=== PATIENT | female | born 1990 | race Asian ===

== ENCOUNTER 2022-04-06 07:46 | Inpatient (IN) ==
[2022-04-06] MEDS ORDERED: OXYTOCIN 30 UNITS/500 ML BAG IV PRN ×3 (09:17→19:10)
[2022-04-06] MEDS ORDERED: LIDOCAINE 1% LOCAL 20 ML VIAL INFIL PRN (09:17)
--- NOTE | 2022-04-06 09:17 | History & Physical Report ---
Date of Service April 06, 2022 Assessment & Plan (1) Encounter for induction of labor: Plan - Patient admitted to labor and delivery for initiation of medical induction of labor - Did not receive Francois bulb placement as she was 4/80/-1 at visit 04/05 w/ Dr Bishop - Patient is at 5/90/-1 today w/o evidence of contractions, thus oxytocin augmentation of labor will be started per protocol - Once contractions are progressing, will consider ROM - Will anticipate epidural as contractions arise - Labs pending Admission and Anticipated Discharge Date Admission Date: April 06, 2022 History of Present Illness Chief Complaint: Induction of Labor Primary Care Provider: NO PCP Khanh is a 31 year old female currently at 40 4/7 with YOKO of 04/02 determined by LMP 06/26/21 who is presenting to L&D for induction of labor. Complications: None Reason for Induction/: Post-date Movement: Yes Fluid Loss/ROM: No Bloody show/discharge: Light spotting since cervix check in office External FHT and uterine monitor: Category 1, tracing reactive, good FHT variability (acels w/o dcels), no contractions Last OB appointment: 04/05 w/ [facility], regular care [facility] Hx: No hx of abnormal pap, No hx of STI Labs: Blood Type: O+ Antibody Screen: Negative Hg/Hct (today): Pending WBC/Plt (today): Pending Rubella: Immune RPR: Non-reactive Gonorrhea: Negative Chlamydia: Negative HIV: Negative HbSAg: Negative GBS: Negative Cff-DNA: Low risk Cf-SMA: Low risk ROS: - Denies fever/chills, CP/dyspnea, dysuria, headache or vision changes Allergies Allergy/AdvReac Type Severity Reaction Status Date / Time No Known Allergies Allergy Verified 04/05/22 10:06 Home Medications Medication Instructions Recorded Confirmed Type ascorbate calcium (vitamin C) 1 tab PO DAILY 08/26/21 04/06/22 History prenat.vits,li,kpk-kcug-ttkus 1 tab PO DAILY 08/26/21 04/06/22 History vitamin B complex 1 tab PO DAILY 08/26/21 04/06/22 History breast pump #1 ea 02/21/22 04/05/22 Rx lecithin 1 tab PO DAILY 02/23/23 02/23/23 History Patient History Medical History (Updated 04/06/22 @ 13:39 by Colin Arriaga MD) Term Surgical History (Updated 04/06/22 @ 13:39 by Colin Arriaga MD) No significant past surgical history Family History Mother Thalassemia Social History (Updated 08/26/21 @ 09:59 by Natalie Khan) Smoking Status: Never smoker Hx Alcohol Use: No Hx Substance Use: No Preferred Language: Comoran Communication Ability: Effective Chief Unit Forester Required: No Beliefs That Will Affect Care: Episcopal Episcopal Beliefs: Patient states she is a yazdanism. marital status: marital status details: Ellis (36) [phone] Current Living Situation: Spouse Current Living Situation Comment: lives with spouse no pets. current occupational status: student current occupation: Student at [employer], Other Information That Helps Us Care for You: No Feels Safe at Home: Yes Safety Concerns: Feels Safe At This Time Physical Exam Physical Exam: General: Alert, oriented. No acute distress. Cardiac: Regular rate and rhythm, no murmurs/rubs/gallops. Respiratory: Clear to auscultation bilaterally a/p, no wheezes/rales/rhonchi. No increased work of breathing. Symmetrical chest rise. No respiratory distress. Abdomen: Gravid; reactive FHTs; Position: Vertex Pelvic: 5/90/-[address] Bishop Lower Extremities: No lower extremity edema or swelling. No deep calf pain. Mariely's negative bilaterally. Results & Data ([facility]) Vital Signs (Past 12 Hours) Vital Signs Temp Pulse Resp BP 04/06/22 08:23 36.5 C 72 18 102/66 Supervising Physician Co-Signing Physician Notes Resident Physician Supervision Note: I was present with Dr. Luna during the history and exam. I discussed the case with the resident and agree with the findings and plan as documented in the note. Any exceptions or clarifications are listed here: None Documented By: Priscilla Bishop, Resident Activity Tracking Resident Involvement: Resident Care Provided Care Provided: OB Delivery
[2022-04-06] MEDS: LACTATED RINGER'S 1,000 ML IV PRN ×2 (09:40→13:45)
[2022-04-06 09:49] LABS: Hematocrit (blood only) 37.3 % (37.0-47.0); Hemoglobin 13.1 g/dl (12.0-16.0); Mean Corpuscular Hemoglobin 35.9 pg (25.0-34.0); Mean Corpuscular Hgb Conc 35.1 g/dL (32.0-36.0); Mean Corpuscular Volume 102.2 fL (80.0-100.0); Mean Platelet Volume 10.1 fL (9.4-12.4); Platelet Count 174 K/uL (130-400); RDW Coefficient of Variation 12.1 % (11.5-14.5); RDW Standard Deviation 45.2 fL (36.4-46.3); Red Blood Count 3.65 M/uL (4.20-5.40)
[2022-04-06] MEDS ORDERED: BUPIVACAINE 0.25% 30 ML VIAL ONE (13:31)
[2022-04-06] MEDS ORDERED: SODIUM CHLORIDE 0.9% INJ 10 ML VIAL ONE (13:31)
[2022-04-06] MEDS ORDERED: fentaNYL citrate 100 MCG/2 ML VIAL ONE (13:31)
[2022-04-06] MEDS ORDERED: LIDOCAINE 2%/EPINEPHRINE 1:200,000 20 ML SDV ONE (13:31)
[2022-04-06] MEDS ORDERED: ePHEDrine sulfate 50 MG/ML AMP ONE (13:31)
[2022-04-06] MEDS ORDERED: fentaNYL 2MCG/ML ROPIVACAINE 1.25MG/ML 100 ML BAG EPI ONE (13:32)
--- NOTE | 2022-04-06 13:39 | Anesthesiology Consultation ---
Date of Service April 06, 2022 Assessment & Plan (1) Encounter for pre-operative examination: Chart Review Chart Review: Acceptable Risk for Labor Epidural History Height/Weight Height: 5 ft 3.78 in Weight: 60.781 kg Allergies Allergy/AdvReac Type Severity Reaction Status Date / Time No Known Allergies Allergy Verified 04/05/22 10:06 Medications Home Medications Medication Instructions Recorded Confirmed Last Taken ascorbate calcium (vitamin C) 1 tab PO DAILY 08/26/21 04/06/22 04/05/22 08:00 prenat.vits,li,wjz-godt-whors 1 tab PO DAILY 08/26/21 04/06/22 04/05/22 08:00 vitamin B complex 1 tab PO DAILY 08/26/21 04/06/22 04/05/22 08:00 breast pump #1 ea 02/21/22 04/05/22 Unknown lecithin 1 tab PO DAILY 04/06/22 04/06/22 04/05/22 08:00 Active Medications Generic Name Dose Route Start Last Admin Trade Name Bettina PRN Reason Stop Dose Admin Lactated Ringer's 1,000 mls @ 125 mls/hr 04/06/22 09:17 04/06/22 10:00 Lr IV 04/08/22 09:16 125 mls/hr .Q8H PRN Infusion L&D Protocol Protocol Oxytocin 30 units in 500 mls @ 13 mls/hr 04/06/22 09:17 04/06/22 13:00 Pitocin IV 04/08/22 09:16 0.78 units/hr .Q24H PRN 13 mls/hr Labor Induction/Augmentation Titration Protocol 0.78 UNITS/HR Past Medical History Medical History (Updated 04/06/22 @ 13:39 by Colin Arriaga MD) Term Past Family History Family History Mother Thalassemia Past Surgical History Surgical History (Updated 04/06/22 @ 13:39 by Colin Arriaga MD) No significant past surgical history Social History Smoking Status: Never smoker Hx Alcohol Use: No Hx Substance Use: No substance use type: does not use Physical Exam Vital Signs Last Vital Signs Temp 36.7 C 04/06/22 11:28 Pulse 67 04/06/22 13:28 Resp 18 02/23/23 11:28 BP 122/67 04/06/22 13:28 Testing Laboratory Results 04/06/22 09:27
[2022-04-06] MEDS ORDERED: NALOXONE HCL 1 MG in SODIUM CHLORIDE 0.9% 1000ML 1,000 ML IV PRN (14:03)
[2022-04-06] MEDS ORDERED: fentaNYL 2MCG/ML ROPIVACAINE 1.25MG/ML 100 ML BAG EPI PRN (14:03)
[2022-04-06] MEDS ORDERED: NALOXONE HCL 0.4 MG/1 ML VIAL/CARP IV PRN (14:03)
[2022-04-06] MEDS ORDERED: ONDANSETRON INJ 2 MG/ML 2 ML VIAL IV PRN (14:03)
[2022-04-06] MEDS ORDERED: ePHEDrine sulfate 50 MG/ML AMP IV PRN (14:03)
[2022-04-06] MEDS ORDERED: NURSING L&D Epidural Breakthrough Pain Update ONE (15:10)
[2022-04-06] MEDS ORDERED: oxyCODONE/ACETAMINOPHEN 5mg/325mg TAB PO PRN (19:10)
[2022-04-06] MEDS ORDERED: BENZOCAINE 20% AER SPR 82.5 GM CAN EXT PRN (19:10)
[2022-04-06] MEDS ORDERED: HYDROCORTISONE ACETATE 25 MG SUPP PR PRN (19:10)
[2022-04-06] MEDS ORDERED: DIPHTHERIA/TETANUS/PERTUSSIS 0.5mL SYR/VIAL (Age 7+yrs) IM ONE (19:10)
[2022-04-06] MEDS ORDERED: bisacodyL 10 MG SUPP PR PRN (19:10)
[2022-04-06] MEDS ORDERED: ACETAMINOPHEN 325 MG TAB PO PRN (19:10)
--- NOTE | 2022-04-06 19:16 | Delivery Summary ---
Vaginal Delivery Summary Date of Service April 06, 2022 Vaginal Delivery Summary Vaginal Delivery Summary: Pre-delivery diagnoses: 31yo @ 40 4/7, IOL Post-delivery diagnoses: same Procedure: spontaneous vaginal delivery, repair of 3rd degree perineal laceration and left vaginal sulcal tear Surgeon: Priscilla Bishop DO Complications: none Findings: Viable female . Apgars and weight pending, please see nursery records Estimated blood loss: 400ml Description of delivery: The patient progressed to complete with epidural anesthesia. She then began to push. She spontaneously vaginally delivered a viable from the cephalic presentation. The head delivered in [place] position. The anterior shoulder delivered, followed by the posterior shoulder, followed by the body. The baby was placed on mother's abdomen and a spontaneous cry was heard. Delayed cord clamping was employed, and the cord was doubly clamped and cut. Cord blood was obtained. The placenta was delivered spontaneously intact with a 3-vessel cord. The uterus and vagina were swept of clots and debris. IV pitocin was given. The uterus became firm. The cervix, vagina, and perineum were inspected and a 3rd degree perineal laceration was noted, as well as a deep left sulcal tear. The left sulcal tear was reapproximated with 3-0 vicryl. The anal sphincter muscle was partially lacerated, reapproximated with 3-0 Chromic. The remaining tear was reapproximated with 3-0 Vicryl. Excellent hemostasis was observed. The mother and baby are recovering in stable and good condition in the room. Sponge, needle and instrument counts were correct x 2. Priscilla Bishop DO [facility]
--- NOTE | 2022-04-06 19:18 | Anesthesia Procedure Note ---
Date of Service April 06, 2022 Anesthesia Post Epidural Note Vital Signs Vital Signs: Temp Pulse Resp BP Pulse Ox 36.4 C L 101 H 18 102/58 L 98 04/06/22 15:30 04/06/22 19:15 04/06/22 19:00 04/06/22 19:15 04/06/22 18:18 Pain Intensity Lower Abdomen: Pain Intensity: 8 Notes Mental Status: alert / awake / arousable and participated in evaluation Nausea / Vomiting: adequately controlled Pain: adequately controlled Airway Patency, RR, SpO2: stable & adequate BP & HR: stable & adequate Hydration State: stable & adequate Neuraxial Anesthesia: was administered and sensory block is resolving Anesthetic Complications: no major complications apparent Epidural: Removed without complications and With tip intact
[2022-04-06] MEDS: DOCUSATE SODIUM 100 MG CAP PO SCH (21:25)
--- NOTE | 2022-04-06 21:27 | Obstetrical Progress Note ---
Date of Service April 06, 2022 Assessment & Plan Admission and Anticipated Discharge Date Admission Date: April 06, 2022 Subjective Called to patient's room by RN, patient had passed out in bed for about 2-3 minutes, witnessed by her mother and FOB. She was given O2 and IV fluids. I ordered STAT H/H. I examined her at bedside. Uterine fundus firm, small amount of lochia. Patient was awake, talking. Told me she was feeling fine and thinking she was maybe just hungry, asking to eat. BP 100s/60s, pulse wnl. No problems with breathing, chest pain, or shortness of breath. No headache, no nausea/vomiting. Candia dizzy just before she passed out, but no longer feeling dizzy now. Will watch for labs to return, continue monitoring vitals and symptoms. Results & Data ([facility]) Vital Signs (Past 12 Hours) Vital Signs Temp Pulse Resp BP Pulse Ox 04/06/22 21:15 18 04/06/22 20:20 16 04/06/22 19:45 16 04/06/22 19:15 18 04/06/22 19:00 18 04/06/22 21:21 77 96 04/06/22 21:16 78 96 04/06/22 21:15 68 04/06/22 21:15 91/51 L 04/06/22 21:15 75 89/55 L 04/06/22 21:11 77 95 04/06/22 21:07 79 94 04/06/22 21:06 81 95 04/06/22 21:01 78 96 04/06/22 20:59 83 97/55 L 04/06/22 20:56 74 96 04/06/22 20:51 70 97 04/06/22 20:46 76 97 04/06/22 20:44 73 93/56 L 04/06/22 20:41 74 99 04/06/22 20:36 66 98 04/06/22 20:31 65 99 04/06/22 20:29 62 101/64 04/06/22 20:26 97 04/06/22 20:26 62 04/06/22 20:26 61 100/58 L 04/06/22 20:23 117 H 94/51 L 04/06/22 20:14 95 H 97/54 L 04/06/22 20:13 82 88/50 L 04/06/22 20:00 100 H 82/52 L 04/06/22 19:30 116 H 104/64 04/06/22 16:45 18 04/06/22 16:45 36.9 C 18 04/06/22 19:15 101 H 102/58 L 04/06/22 19:00 90 96/70 L 04/06/22 18:50 92 H 97/53 L 04/06/22 18:48 102 H 161/130 H 04/06/22 18:18 84 98 04/06/22 18:15 81 100/52 L 04/06/22 18:13 87 98 04/06/22 18:08 84 98 04/06/22 18:03 87 96 04/06/22 17:58 79 97 04/06/22 17:53 77 97 04/06/22 17:48 77 97 04/06/22 17:43 76 97 04/06/22 17:38 78 98 04/06/22 17:33 78 95 04/06/22 17:28 83 112/87 100 04/06/22 17:23 76 98 04/06/22 17:18 78 99 04/06/22 17:14 64 109/58 L 04/06/22 17:13 65 99 04/06/22 17:12 94 H 92 04/06/22 17:08 75 97 04/06/22 17:03 67 98 04/06/22 16:58 100 04/06/22 16:58 85 04/06/22 16:59 74 141/61 H 04/06/22 16:58 82 87 L 04/06/22 16:53 82 98 04/06/22 16:48 70 99 04/06/22 16:47 82 93 04/06/22 16:43 100 04/06/22 16:43 103 H 04/06/22 16:43 61 109/58 L 04/06/22 16:38 70 99 04/06/22 16:33 85 95 04/06/22 16:28 65 114/61 100 04/06/22 16:23 68 100 04/06/22 16:18 72 99 04/06/22 16:14 60 111/65 04/06/22 16:13 65 100 04/06/22 16:08 67 99 04/06/22 16:03 83 99 04/06/22 15:58 99 04/06/22 15:58 68 04/06/22 15:58 64 107/59 L 04/06/22 15:53 67 100 04/06/22 15:48 66 100 04/06/22 15:43 65 125/77 99 04/06/22 15:38 64 99 04/06/22 15:30 16 04/06/22 15:30 36.4 C L 16 04/06/22 15:33 62 99 04/06/22 15:28 61 122/56 L 100 04/06/22 15:23 59 L 99 04/06/22 15:18 63 100 04/06/22 15:13 65 119/70 98 04/06/22 15:08 61 99 04/06/22 15:03 65 99 04/06/22 14:58 63 100 04/06/22 14:57 64 107/63 04/06/22 14:53 66 99 04/06/22 14:48 61 100 04/06/22 14:43 67 109/56 L 99 04/06/22 14:38 67 99 04/06/22 14:33 70 99 04/06/22 14:28 36.9 C 69 18 106/64 99 04/06/22 14:23 69 100 04/06/22 14:18 68 100 04/06/22 14:13 71 99 04/06/22 14:12 64 106/68 04/06/22 14:08 100 04/06/22 14:08 65 04/06/22 14:08 69 109/63 04/06/22 14:03 70 125/82 97 04/06/22 14:00 36.4 C L 59 L 18 137/81 04/06/22 13:48 78 100 04/06/22 13:43 68 97 04/06/22 13:38 65 98 04/06/22 13:28 36.4 C L 67 18 122/67 04/06/22 12:30 59 L 113/61 04/06/22 11:28 36.7 C 63 18 98/62 L 04/06/22 10:00 65 110/72 PG Care Time/CCT Total # of Minutes Spent Total Time Spent with Patient: Total time spent is greater than 50% in coordination of care (as documented) at patient's floor/unit and/or counseling patient: Coding Level of Care Code None Diagnoses
[2022-04-06 21:44] LABS: Hematocrit (blood only) 31.5 % (37.0-47.0); Hemoglobin 10.8 g/dl (12.0-16.0)
[2022-04-06] MEDS: IBUPROFEN 600 MG TAB PO PRN (23:43)
[2022-04-07] MEDS: IBUPROFEN 600 MG TAB PO PRN ×5 (03:31→21:22)
[2022-04-07 07:18] LABS: Hematocrit (blood only) 28.5 % (37.0-47.0); Hemoglobin 9.9 g/dl (12.0-16.0)
[2022-04-07] MEDS: DOCUSATE SODIUM 100 MG CAP PO SCH ×2 (07:40→20:23)
[2022-04-07] MEDS: PRENATAL VITAMIN 1 TAB PO SCH (07:40)
--- NOTE | 2022-04-07 07:40 | Obstetrical Progress Note ---
Date of Service April 07, 2022 Assessment & Plan (1) care following vaginal delivery: Plan - Overall, feeling well and eating well today - Infant feeding going well, notes baby is sleepy, but she is getting good support - Urinating and passing gas appropriately - Ambulating well in room - Pain controlled w/ Ibuprofen - Hgb 9.9 on 04/07 - Vitals stable and wnl - Routine PP care progressing well - Anticipate discharge @ 24-48 hours PP - Recommending f/u outpatient in 6 weeks Admission and Anticipated Discharge Date Admission Date: April 06, 2022 Supervising Physician Co-Signing Physician Notes Resident Physician Supervision Note: I interviewed and examined the patient. Discussed with Dr. Luna and agree with findings and plan as documented in the note. Any exceptions or clarifications are listed here: PPD#1 doing well, no further syncopal episodes. Anticipate DC home tomorrow. Documented By: Priscilla Bishop, DO Subjective Patient is a 31F who is PPD #1 following delivery at 40 4/7. She reports feeling well overall this morning. - Ambulation - well throughout room - Voiding/Francois - independent voids, no dysuria or pressure - Gas/Stool - passing gas, no bowel movement - Diet - regular, no nausea or emesis - Lochia - diminishing, light amount - Feeding Type - breast feeding - Pain Level - 3/10, controlled with Ibuprofen Review of Systems - Denies fever, chills, sweats - Denies shortness of breath, difficulty breathing, chest pain, palpitations, chest pressure. - Denies breast pain. - Denies dysuria. - Denies headache or changes in vision. Physical Exam Physical Exam: General: Alert, oriented. No acute distress. Cardiac: RRR, normal S1/S2, no murmurs/rubs/gallops. Respiratory: Non-labored, CTAB, no wheezes/rales/rhonchi. Symmetric chest rise. Abdomen: Soft, nontender, nondistended. Bowel sounds present. Uterus: Uterine fundus firm, palpable 2 cm below umbilicus. Lower Extremities: No lower extremity edema or swelling. No deep calf pain. Mariely's negative bilaterally. Results & Data ([facility]) Vital Signs (Past 12 Hours) Vital Signs Temp Pulse Pulse Resp BP BP Pulse Ox 04/07/22 03:20 36.3 C L 68 18 116/72 100 04/06/22 22:15 36.6 C 68 18 99/62 L 97 04/06/22 21:50 37.2 C 18 04/06/22 21:15 18 04/06/22 20:20 16 04/06/22 19:45 16 04/06/22 21:50 80 98/54 L 04/06/22 21:46 77 95 04/06/22 21:41 84 95 04/06/22 21:36 92 H 96 04/06/22 21:31 89 96 04/06/22 21:30 98 H 111/59 L 04/06/22 21:26 100 H 97 04/06/22 21:21 77 96 04/06/22 21:16 78 96 04/06/22 21:15 68 04/06/22 21:15 91/51 L 04/06/22 21:15 75 89/55 L 04/06/22 21:11 77 95 04/06/22 21:07 79 94 04/06/22 21:06 81 95 04/06/22 21:01 78 96 04/06/22 20:59 83 97/55 L 04/06/22 20:56 74 96 04/06/22 20:51 70 97 04/06/22 20:46 76 97 04/06/22 20:44 73 93/56 L 04/06/22 20:41 74 99 04/06/22 20:36 66 98 04/06/22 20:31 65 99 04/06/22 20:29 62 101/64 04/06/22 20:26 97 04/06/22 20:26 62 04/06/22 20:26 61 100/58 L 04/06/22 20:23 117 H 94/51 L 04/06/22 20:14 95 H 97/54 L 04/06/22 20:13 82 88/50 L 04/06/22 20:00 100 H 82/52 L O2 Del Method 04/07/22 03:20 Room Air 04/06/22 22:15 Room Air 04/06/22 21:50 04/06/22 21:15 04/06/22 20:20 04/06/22 19:45 04/06/22 21:50 04/06/22 21:46 04/06/22 21:41 02/23/23 21:36 04/06/22 21:31 04/06/22 21:30 04/06/22 21:26 04/06/22 21:21 04/06/22 21:16 04/06/22 21:15 04/06/22 21:15 04/06/22 21:15 04/06/22 21:11 04/06/22 21:07 04/06/22 21:06 04/06/22 21:01 04/06/22 20:59 04/06/22 20:56 04/06/22 20:51 04/06/22 20:46 04/06/22 20:44 04/06/22 20:41 04/06/22 20:36 04/06/22 20:31 04/06/22 20:29 04/06/22 20:26 04/06/22 20:26 04/06/22 20:26 04/06/22 20:23 04/06/22 20:14 04/06/22 20:13 04/06/22 20:00 Resident Activity Tracking Resident Involvement: Resident Care Provided Care Provided: OB Delivery
[2022-04-07] MEDS ORDERED: bisacodyL 5 MG TABEC PO SCH (20:00)
[2022-04-08] MEDS: IBUPROFEN 600 MG TAB PO PRN ×2 (04:19→08:54)
--- NOTE | 2022-04-08 06:25 | Obstetrical Progress Note ---
Date of Service April 08, 2022 Assessment & Plan (1) care following vaginal delivery: Plan - Overall, feeling well and eating well today - Infant feeding going well - Urinating and passing gas appropriately - Ambulating well in room - Pain controlled w/ Ibuprofen - Hgb 9.9 on 04/07 - Vitals stable and wnl - Routine PP care progressing well - Anticipate discharge @ 24-48 hours PP - Recommending f/u outpatient in 6 weeks Admission and Anticipated Discharge Date Admission Date: April 06, 2022 Supervising Physician Co-Signing Physician Notes Resident Physician Supervision Note: I interviewed and examined the patient. Discussed with Dr. Luna and agree with findings and plan as documented in the note. Any exceptions or clarifications are listed here: [None] Documented By: Maria L Hinds MD, FACOG Subjective Patient is a 31F who is PPD #2 following delivery at 40 4/7. She reports feeling well overall this morning. - Ambulation - well throughout room - Voiding/Francois - independent voids, no dysuria or pressure - Gas/Stool - passing gas, no bowel movement - Diet - regular, no nausea or emesis - Lochia - diminishing, light amount - Infant Feeding Type - breast feeding - Pain Level - 3/10, controlled with Ibuprofen Review of Systems - Denies fever, chills, sweats - Denies shortness of breath, difficulty breathing, chest pain, palpitations, chest pressure. - Denies breast pain. - Denies dysuria. - Denies headache or changes in vision. Physical Exam Physical Exam: General: Alert, oriented. No acute distress. Cardiac: RRR, normal S1/S2, no murmurs/rubs/gallops. Respiratory: Non-labored, CTAB, no wheezes/rales/rhonchi. Symmetric chest rise. Abdomen: Soft, nontender, nondistended. Bowel sounds present. Uterus: Uterine fundus firm, palpable 2 cm below umbilicus. Lower Extremities: No lower extremity edema or swelling. No deep calf pain. Mariely's negative bilaterally. Results & Data ([facility]) Vital Signs (Past 12 Hours) Vital Signs Temp Pulse Resp BP BP Pulse Ox O2 Del Method 04/07/22 23:28 36.7 C 67 18 93/57 L 97 Room Air 04/07/22 20:15 Room Air 04/07/22 20:15 36.6 C 81 18 90/49 L 98 Room Air Resident Activity Tracking Resident Involvement: Resident Care Provided Care Provided: OB Delivery
[2022-04-08] MEDS: DOCUSATE SODIUM 100 MG CAP PO SCH (08:54)
[2022-04-08] MEDS: PRENATAL VITAMIN 1 TAB PO SCH (08:54)
== END 2022-04-08 12:15 | disposition home or self-care (01) | DRG 768 ==
LOC: 4S1 07:46 → 4E2 22:33